=== PATIENT | female | born 1965 | race Caucasian/White ===

== ENCOUNTER 2017-06-20 15:52 | Emergency (ER) | payer OTHER ==
[~2017-06-20] VITALS: Ht 147.3 cm; Wt 47.8 kg
[~2017-06-20 15:52] MED LIST: IBUP-1050 PO
[2017-06-20 15:55] VITALS: TEMP 36.7; Ht 147.3 cm; Wt 47.8 kg
[2017-06-20] MEDS ORDERED: ONDANSETRON 8 MG/54 ML D5W IV STA (16:07)
[2017-06-20] MEDS ORDERED: SODIUM CHLORIDE 0.9% 1000ML 1,000 ML IV STA (16:07)
[2017-06-20 16:19] LABS: BASO % 0.3 %; BASO ABS # 0.02 K/uL (0-0.2); COMPLETE YES; EOS % 2.6 %; HEMATOCRIT 43.8 % (37-47); IG% 0.1 %; LYMPH ABS # 2.44 K/uL (1.2-3.4); MEAN CELL VOLUME 89.9 fL (80-100); MEAN CORPUSCULAR HEMOGLOBIN 31.4 pg (25-34); MEAN CORPUSCULAR HGB CONC 34.9 g/dl (32-36); MEAN PLATELET VOLUME 9.3 fL (7.4-10.4); MONO % 5.2 %; NEUT % 59.8 %; PLATELET COUNT 226 K/uL (130-400); RED BLOOD COUNT 4.87 M/uL (4.2-5.4); WHITE BLOOD COUNT 7.62 K/uL (4.8-10.8)
[2017-06-20] MEDS ORDERED: DOXY1TAB6 PO (16:28)
[2017-06-20 16:42] LABS: ALT/SGPT 23 U/L (12-78); BLOOD UREA NITROGEN 9 mg/dl (7-18); BUN/CREATININE RATIO 14.1 (10-20); CALCIUM 9.8 mg/dl (8.5-10.1); CARBON DIOXIDE 26 mmol/L (21-32); CHLORIDE 106 mmol/L (98-107); CREATININE 0.66 mg/dl (0.60-1.20); GLUCOSE 86 mg/dl (70-99); POTASSIUM 3.7 mmol/L (3.5-5.1); SODIUM 140 mmol/L (136-145)
[2017-06-20 16:45] LABS: ALKALINE PHOSPHATASE 84 U/L (45-117); AST/SGOT 22 U/L (15-37)
--- NOTE | 2017-06-20 17:21 | DIAGNOSTIC IMAGING REPORT ---
ULTRASOUND LEFT VENOUS DOPPLER UPR EXT UNIL CLINICAL HISTORY: left arm swelling COMPARISON STUDY: No previous studies for comparison. FINDINGS: No intraluminal thrombus was visualized. The internal jugular, subclavian, axillary, cephalic, brachial, basilic, radial, and ulnar veins were patent. IMPRESSION: No evidence of left upper extremity DVT. Electronically signed by: Mele Elena M.D. 06/20/2017 5:20 PM Dictated Date/Time: 06/20/2017 5:19 PM
[2017-06-20] MEDS ORDERED: ONDANSETRON HOME PACK 4MG OD TAB PO ONE (17:45)
[2017-06-20 17:46] VITALS: BP 166/97; PULSE 86; O2SAT 98
--- NOTE | 2017-06-20 23:55 | EMERGENCY ROOM VISIT NOTE ---
History Report prepared by Taniaibsarina: Allison Lezama Under the Supervision of: Dr. Adrien Peña M.D. First contact with patient: 16:01 Chief Complaint: ALLERGIC REACTION Stated Complaint: POSSIBLE ALLERGIC REACTION, NAUSEA - SENT BY History of Present Illness The patient is a 51 year old female who presents to the Emergency Room with complaints of a possible allergic reaction that started 2 days OUTSIDE [employer]. She reports over 1 month ago, she was placed on an antibiotic for a finger infection. She finished a 7 day course of the antibiotics, then 2 days ago, had the finger rechecked and got a pneumonia shot and flu shot in her left arm. Shortly after getting the injections, she noticed erythema and edema of her left arm, and was seen again by a physician at [facility]. She was prescribed Doxycycline and an ultrasound was ordered and scheduled for later in the week. However, the patient came directly to the ED when she started vomiting earlier this afternoon. She denies any drainage from her injection sites. She notes she did take the Doxycycline on an empty stomach. She admits to some "burning" abdominal pain currently. Pt denies LOC, headache, fevers, chills, diaphoresis, visual changes, neck pain, chest pain, breathing difficulties, back pain, melena , hematochezia, urinary symptoms, numbness, weakness, lymphadenopathy, rash, or other complaints. 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 A total of ten systems were reviewed and were otherwise negative. Past Medical & Surgical Medical Problems: (1) Arthroplasty of knee (2) Biopsy of breast (3) CALCULUS OF KIDNEY (4) Dilation and curettage (5) Kidney stone (6) TOBACCO USE DISORDER Family History Diabetes mellitus Social History Smoking Status: Current Every Day Smoker Alcohol Use: occasionally Drug Use: none Marital Status: Housing Status: lives with significant other Occupation Status: employed Current/Historical Medications Scheduled Doxycycline Hyclate (Doxycycline Hyclate), 100 MG PO BID Scheduled PRN Ibuprofen (Advil), 400 MG PO Q4-6 HRS PRN for Pain or Fever Allergies Coded Allergies: Amoxicillin (Verified Allergy, Intermediate, Blisters in mouth,nausea/ vomiting, 06/20/17) Clavulanic Acid (Verified Allergy, Intermediate, Blisters in mouth,nausea/ vomiting, 06/20/17) Prednisone (Verified Allergy, Intermediate, BODY SWELLING, 03/14/16) Scopolamine (Verified Allergy, Unknown, pupils remain dilated, 03/14/16) Sulfamethoxazole w/Trimethoprim (Verified Allergy, Unknown, HIVES, 03/14/16) Physical Exam Vital Signs Date Time Temp Pulse Resp B/P (MAP) Pulse Ox O2 Delivery O2 Flow Rate FiO2 06/20/17 17:46 86 18 166/97 98 Room Air 06/20/17 16:45 75 20 177/99 99 Room Air 06/20/17 15:55 36.7 87 16 180/85 96 Room Air Physical Exam GENERAL: Awake, alert, well-appearing, in no distress HENT: Normocephalic, atraumatic. Oropharynx unremarkable. EYES: Normal conjunctiva. Sclera non-icteric. NECK: Supple. No nuchal rigidity. FROM. No JVD. RESPIRATORY: Clear to auscultation. CARDIAC: Regular rate, normal rhythm. Extremities warm and well perfused. Pulses equal. ABDOMEN: Soft, non-distended. No tenderness to palpation. No rebound or guarding. No masses. RECTAL: Deferred. MUSCULOSKELETAL: Chest examination reveals no tenderness. The back is symmetrical on inspection without obvious abnormality. There is no CVA tenderness to palpation. No joint edema. LOWER EXTREMITIES: Calves are equal size bilaterally and non-tender. No edema. No discoloration. NEURO: Normal sensorium. No sensory or motor deficits noted. SKIN: Warm, erythematous patch in the area of the lateral bicep, small amount of swelling, not at immunization injection sites. The remainder of the arm examines normally, no other rash or jaundice noted. Mild tenderness and swelling at the nail fold of the left second finger. Medical Decision & Procedures ER Provider Diagnostic Interpretation: Radiology results as stated below per my review and radiologist interpretation: ULTRASOUND LEFT VENOUS DOPPLER UPR EXT UNIL CLINICAL HISTORY: left arm swelling COMPARISON STUDY: No previous studies for comparison. FINDINGS: No intraluminal thrombus was visualized. The internal jugular, subclavian, axillary, cephalic, brachial, basilic, radial, and ulnar veins were patent. IMPRESSION: No evidence of left upper extremity DVT. Electronically signed by: Mele Elena M.D. 06/20/2017 5:20 PM Laboratory Results 06/20/17 16:05 Red Blood Count 4.87, Mean Corpuscular Volume 89.9, Mean Corpuscular Hemoglobin 31.4, Mean Corpuscular Hemoglobin Concent 34.9, Mean Platelet Volume 9.3, Neutrophils (%) (Auto) 59.8, Lymphocytes (%) (Auto) 32.0, Monocytes (%) (Auto) 5.2, Eosinophils (%) (Auto) 2.6, Basophils (%) (Auto) 0.3, Neutrophils # (Auto) 4.55, Lymphocytes # (Auto) 2.44, Monocytes # (Auto) 0.40, Eosinophils # (Auto) 0.20, Basophils # (Auto) 0.02 06/20/17 16:05 Test 06/20/17 16:05 White Blood Count 7.62 K/uL (4.8-10.8) Red Blood Count 4.87 M/uL (4.2-5.4) Hemoglobin 15.3 g/dL (12.0-16.0) Hematocrit 43.8 % (37-47) Mean Corpuscular Volume 89.9 fL (80-100) Mean Corpuscular Hemoglobin 31.4 pg (25-34) Mean Corpuscular Hemoglobin Concent 34.9 g/dl (32-36) Platelet Count 226 K/uL (130-400) Mean Platelet Volume 9.3 fL (7.4-10.4) Neutrophils (%) (Auto) 59.8 % Lymphocytes (%) (Auto) 32.0 % Monocytes (%) (Auto) 5.2 % Eosinophils (%) (Auto) 2.6 % Basophils (%) (Auto) 0.3 % Neutrophils # (Auto) 4.55 K/uL (1.4-6.5) Lymphocytes # (Auto) 2.44 K/uL (1.2-3.4) Monocytes # (Auto) 0.40 K/uL (0.11-0.59) Eosinophils # (Auto) 0.20 K/uL (0-0.5) Basophils # (Auto) 0.02 K/uL (0-0.2) RDW Standard Deviation 45.0 fL (36.4-46.3) RDW Coefficient of Variation 13.7 % (11.5-14.5) Immature Granulocyte % (Auto) 0.1 % Immature Granulocyte # (Auto) 0.01 K/uL (0.00-0.02) Anion Gap 8.0 mmol/L (3-11) Est Creatinine Clear Calc Drug Dose 66.5 ml/min Estimated GFR () 120.2 Estimated GFR (Non- 103.7 BUN/Creatinine Ratio 14.1 (10-20) Calcium Level 9.8 mg/dl (8.5-10.1) Total Bilirubin 0.2 mg/dl (0.2-1) Direct Bilirubin < 0.1 mg/dl (0-0.2) Aspartate Amino Transf (AST/SGOT) 22 U/L (15-37) Alanine Aminotransferase (ALT/SGPT) 23 U/L (12-78) Alkaline Phosphatase 84 U/L (45-117) Total Protein 7.6 gm/dl (6.4-8.2) Albumin 4.1 gm/dl (3.4-5.0) Lipase 138 U/L (73-393) Laboratory results reviewed by me Medications Administered Medications (Trade) Dose Ordered Sig/Aftab Route Start Time Stop Time Status Last Admin Dose Admin Sodium Chloride 1,000 ml @ 999 mls/hr Q1H1M STAT IV 06/20/17 16:07 06/20/17 17:07 DC 06/20/17 16:18 999 MLS/HR Ondansetron HCl (Zofran 8mg Iv) 8 mg NOW STAT IV 06/20/17 16:07 06/20/17 16:11 DC 06/20/17 16:19 8 MG Ondansetron HCl (ZOFRAN ODT 4MG Home Pack) 1 homepack UD ONCE PO 06/20/17 17:45 06/20/17 17:46 DC 06/20/17 17:48 1 HOMEPACK ED Course 1606: The patient was evaluated in room A11B. A complete history and physical exam was performed. 1607: Zofran 8 mg IV, NSS 1000 ml @ 999 mls/hr IV. 1730: I reevaluated the patient. She is feeling much better. I discussed her results and discharge instructions and she verbalized complete understanding and agreement. 1745: Zofran 4 mg 1 homepack PO. Medical Decision Triage Nursing notes reviewed and agree them. The patient's history was concerning for nausea, vomiting, and left arm swelling. Differential diagnosis: Etiologies such as reaction to immunization, medication side effect, cellulitis , DVT, gastroenteritis, food borne illness, infections, appendicitis, diverticulitis, inflammatory bowel disease, GI bleed, biliary pathology, as well as others were entertained. Physical examination findings: As above. Benign abdomen. Warm erythematous patch over the left upper arm but not in the area of the patient's recent injection. Minor paronychia present however there is no fluctuance to warrant drainage. ER treatment provided: IV hydration 1 L NSS. IV Zofran On reassessment the patient felt better. Patient was tolerating p.o. intake. Diagnostics interpretation by me: The labs revealed Unremarkable CBC and chemistry panel. Imaging studies: Ultrasound as above I suspect the patient had the nausea and vomiting after taking the doxycycline on an empty stomach. She will take this with food but not with dairy products or calcium supplements. The patient may have a local reaction to a immunizations although there is some distance between the injection and the erythematous patch. There is no bulls eye appearance. There is no sloughing. The patient has a small paronychia that was already drained on the same index finger. She will continue the doxycycline. She was given Zofran. The patient will use warm compresses. If she worsens she will come back. She will follow- up with her primary physician. By the evaluation outlined above emergent etiologies such as abscess, DVT, appendicitis, diverticulitis, mesenteric ischemia, aortic pathology, inflammatory bowel disease, renal colic, PUD, biliary pathology, UTI, as well as others were deemed relatively unlikely. The patient was informed about the findings as listed above. All questions were answered and she was pleased with the treatment. Return instructions were outlined and the patient was discharged in stable condition. Outpatient prescription management: Zofran home pack Referral: The patient was referred to her primary care physician for follow-up for recheck in 2-3 days of the current condition. Medication Reconcilliation Current Medication List: was personally reviewed by me Blood Pressure Screening Patient's blood pressure: Elevated blood pressure Blood pressure disposition: Referred to PCP Impression Primary Impression: Nausea & vomiting Additional Impressions: Medication side effect Paronychia of finger of left hand Rash Scribe Attestation The scribe's documentation has been prepared under my direction and personally reviewed by me in its entirety. I confirm that the note above accurately reflects all work, treatment, procedures, and medical decision making performed by me. Departure Information Dispostion Home / Self-Care Referrals Mumtaz Ashraf M.D. (PCP) Patient Instructions My [facility] Additional Instructions Doxycycline 100mg: Take twice a day as prescribed. Take with food, but avoid dairy. Avoid prolonged sun exposure since this medication makes you temporarily more susceptible to sunburns. All antibiotics can cause diarrhea. If this occurs and you feel worse or it does not resolve in 1-2 days follow up with your doctor or return to the Emergency Department as this could be signs of serious underlying problems. Any medication can cause an allergic reaction, stop the pills immediately and return to the ER for rash, hives, breathing difficulties, or swelling. Warm compresses for 20 minutes at a time four times daily for 2-3 days. Zofran 4 mg oral dissolving tablets: take one tablet and allow it to melt in your mouth every 4 hours as needed for nausea. Follow-up with your primary office in 2-3 days for recheck of the current issues as well as your blood pressure. Return to the ER for worsening rash, swelling, abdominal pain, vomiting, fevers , bloody stools, or as needed. Problem Qualifiers
== END 2017-06-20 17:58 | disposition home or self-care (01) ==
LOC: C.EDB 15:53 → C.EDA 17:58
DX: R11.2 Nausea with vomiting, unspecified (principal); T36.4X5A Adverse effect of tetracyclines, initial encounter; X58.XXXA Exposure to other specified factors, initial encounter; L03.012 Cellulitis of left finger; R21 Rash and other nonspecific skin eruption; F17.200 Nicotine dependence, unspecified, uncomplicated; Z87.442 Personal history of urinary calculi

== ENCOUNTER → 2017-10-14 | Outpatient (CLI) | payer OTHER ==
[~2017-10-14] MED LIST changes: +DOXY1TAB6 PO
[2017-10-14 11:14] LABS: BASO % 0.3 %; BASO ABS # 0.02 K/uL (0-0.2); EOS % 2.4 %; EOS ABS # 0.15 K/uL (0-0.5); HEMATOCRIT 46.7 % (37-47); HEMOGLOBIN 16.1 g/dL (12.0-16.0); IG# 0.01 K/uL (0.00-0.02); LYMPH % 30.9 %; LYMPH ABS # 1.93 K/uL (1.2-3.4); MEAN CELL VOLUME 90.9 fL (80-100); MEAN CORPUSCULAR HEMOGLOBIN 31.3 pg (25-34); MEAN CORPUSCULAR HGB CONC 34.5 g/dl (32-36); MEAN PLATELET VOLUME 9.6 fL (7.4-10.4); MONO % 7.2 %; MONO ABS # 0.45 K/uL (0.11-0.59); NEUT ABS # 3.68 K/uL (1.4-6.5); PLATELET COUNT 253 K/uL (130-400); RED CELL DISTRIBUTION WIDTH CV 14.1 % (11.5-14.5); RED CELL DISTRIBUTION WIDTH SD 47.3 fL (36.4-46.3); WHITE BLOOD COUNT 6.24 K/uL (4.8-10.8)
[2017-10-14 12:20] LABS: ALT/SGPT 36 U/L (12-78); AST/SGOT 21 U/L (15-37); BLOOD UREA NITROGEN 13 mg/dl (7-18); CALCIUM 9.4 mg/dl (8.5-10.1); CARBON DIOXIDE 23 mmol/L (21-32); CREATININE 0.77 mg/dl (0.60-1.20); GLUCOSE 85 mg/dl (70-99); POTASSIUM 4.1 mmol/L (3.5-5.1); SODIUM 138 mmol/L (136-145)
[2017-10-14 12:32] LABS: ALKALINE PHOSPHATASE 83 U/L (45-117); CHOLESTEROL 176 mg/dl (0-200); LDL CHOLESTEROL CALCULATED 91 mg/dl; TOTAL PROTEIN 7.5 gm/dl (6.4-8.2)
== END | disposition home or self-care (01) ==
LOC: C.LABBC 07:55
PROVIDERS: ATTEND Neuromusculoskeletal Medicine & OMM
DX: Z00.00 Encounter for general adult medical examination without abnormal findings (principal); Z13.1 Encounter for screening for diabetes mellitus; Z13.220 Encounter for screening for lipoid disorders

== ENCOUNTER → 2017-11-25 | Outpatient (CLI) | payer OTHER ==
--- NOTE | 2017-11-25 08:18 | DIAGNOSTIC IMAGING REPORT ---
FUSION CT SINUSES W/O CLINICAL HISTORY: CHRONIC SINUSITIS COMPARISON STUDY: No previous studies for comparison. FINDINGS: Helical images were acquired in the transverse plane. A dose reduction technique was utilized adhering to the principles of ALARA. No orbital masses are visualized. There is no hydrocephalus. There is S-shaped nasal septal deviation. There is very mild mucosal thickening involving the maxillary and sphenoid sinuses. There are no air-fluid levels to indicate acute sinusitis. The middle ear cavities appear symmetrically aerated. There is no evidence of mastoid disease. The ostiomeatal units appear patent bilaterally. The ethmoid notches appear protected. There is nasal turbinate engorgement. The frontal recesses are patent. IMPRESSION: 1. No evidence of acute sinusitis 2. The ostiomeatal units are patent bilaterally 3. Nasal turbinate engorgement Electronically signed by: Mele Elena M.D. 11/25/2017 8:17 AM Dictated Date/Time: 11/25/2017 8:10 AM
== END | disposition home or self-care (01) ==
LOC: C.CTS 07:51
PROVIDERS: ATTEND Physician Assistant
DX: J32.9 Chronic sinusitis, unspecified (principal)